=== PATIENT | female | born 1990 | race Caucasian/White ===

== ENCOUNTER 2024-03-10 05:36 | Day surgery (SDC) | payer OTHER ==
[2024-03-09 10:08] VITALS: BMI 29.9
[2024-03-10] MEDS ORDERED: CEFAZOLIN 2 GM VIAL ONE (06:19)
[2024-03-10] MEDS ORDERED: Bupivacaine PF 0.5% 30 ML VIAL ONE (06:19)
[2024-03-10] MEDS ORDERED: Ketorolac Tromethamine 30 MG (1 mL) VIAL ONE (06:24)
[2024-03-10] MEDS ORDERED: Gabapentin 300 MG CAP ONE (06:24)
[2024-03-10] MEDS ORDERED: Acetaminophen 325 MG TAB ONE (06:24)
[2024-03-10] MEDS ORDERED: PROPOFOL 20 ML ONE (06:32)
[2024-03-10] MEDS ORDERED: Fentanyl 250 MCG/5 ML VIAL ONE (06:32)
[2024-03-10] MEDS ORDERED: MINERAL OIL/WHITE PETROLATUM 3.5 GM TUBE ONE (06:35)
[2024-03-10] MEDS ORDERED: Midazolam HCl 2 mg/2 ml Vial ONE (06:54)
[2024-03-10] MEDS ORDERED: Dexamethasone 20 MG/5 ML VIAL ONE (07:04)
[2024-03-10] MEDS ORDERED: Ondansetron PF 4 MG/2 ML Vial ONE (07:04)
[2024-03-10] MEDS ORDERED: ePHEDrine Sulfate 50 MG/10 ML VIAL ONE (07:14)
[2024-03-10] MEDS ORDERED: Sevoflurane 250 ML INH ANEST BOTTLE ONE (07:48)
[2024-03-10] MEDS ORDERED: diphenhydrAMINE 50 MG/ML VIAL ONE (08:06)
[2024-03-10] MEDS ORDERED: Meperidine HCl/PF 25 MG (1 mL) VIAL ONE (08:24)
[2024-03-10] MEDS ORDERED: HYDROcodone/Acetaminophen 5/325 mg Tablet ONE (09:03)
== END 2024-03-10 10:15 | disposition home or self-care (01) ==
LOC: CSHSDC 05:36
PROVIDERS: ATTEND Orthopaedic Surgery
PROC: 0PSP04Z Reposition Right Metacarpal with Internal Fixation Device, Open Approach (ICD-10-PCS; principal; 2024-03-10)
DX: S62.231A Other displaced fracture of base of first metacarpal bone, right hand, initial encounter for closed fracture (principal); W08.XXXA Fall from other furniture, initial encounter
CPT/HCPCS: C1713; J0665; J1100; J1200; J1885; J2175; J2250; J2405; J2704; J3010